=== PATIENT | female | born 1995 | race African-American/Black ===

== ENCOUNTER 2017-07-09 22:42 | Emergency (ER) | payer MEDICAID ==
[~2017-07-09] VITALS: Ht 157.5 cm; Wt 74.8 kg
[2017-07-09 22:42] VITALS: BP_SYST 128
--- NOTE | 2017-07-09 22:49 | NUR ---
Patient to ER bed 7 to gown for evaluation. Side rails up. Report given to Shanna STALEY.
--- NOTE | 2017-07-09 23:00 | NUR ---
Patientto ER C/O left foot pain. Patient states that she woke up 2 days ago with left foot pain w/o injury or trauma. Mild swelling to left foot, tenderness with palpation, describes the pain as throbbing and non-radiating, no signs of acute distress.
--- NOTE | 2017-07-09 23:24 | NUR ---
SHILOH Redd at bedside for evaluation.
--- NOTE | 2017-07-09 23:37 | NUR ---
[employer] at bedside for blood draw. Patient identified x2
[2017-07-09 23:52] LABS: BASOPHILS % (AUTO) 0.3 % (0.0-2.0); EOSINOPHILS # (AUTO) 0.2 K/uL (0.0-0.4); EOSINOPHILS % (AUTO) 1.5 % (0.0-4.0); HEMATOCRIT 40.1 % (36-48); HEMOGLOBIN 13.4 g/dL (12.0-16.0); LYMPHOCYTES # (AUTO) 2.8 K/uL (1.0-5.5); LYMPHOCYTES % (AUTO) 27.7 % (20.5-51.5); MEAN CORPUSCULAR HEMOGLOBIN 27 pg (27-31); MEAN CORPUSCULAR HGB CONC 34 % (32-36); MEAN CORPUSCULAR VOLUME 81 fL (79.0-98.0); MONOCYTES # (AUTO) 0.3 K/uL (0.0-1.0); MONOCYTES % (AUTO) 2.9 % (1.7-9.3); NEUTROPHILS # (AUTO) 6.9 K/uL (1.8-7.7); NEUTROPHILS % (AUTO) 67.6 % (40.0-70.0); PLATELET COUNT (AUTO) 353 K/uL (130-430); RED BLOOD CELL COUNT(AUTO) 4.93 MIL/uL (4.2-6.2); RED CELL DISTRIBUTION WIDTH 13.1 % (9.0-15.0); WHITE BLOOD COUNT (AUTO) 10.2 K/uL (4.8-10.8)
[2017-07-10 00:34] LABS: ERYTHROCYTE SEDIMENTATION RATE 2 MM/HR (0-20)
--- NOTE | 2017-07-10 00:46 | NUR ---
Patient C/O left foot pain 06/28. ER MD Redd aware
[2017-07-10] MEDS ORDERED: traMADol HCL HCL 50 MG TABLET (ULTRAM) PO ONE (01:15)
[2017-07-10 01:57] VITALS: BP_SYST 126
--- NOTE | 2017-07-10 01:57 | NUR ---
Patient given written and verbal discharge instructions and verbalizes understanding. ER MD Redd iscussed with patient the results and treatment provided. Patient in stable condition. ID arm band removed. Rx of tramadol given. Patient educated on pain management and to follow up with PMD. Pain Scale 0/10. Opportunity for questions provided and answered.
== END 2017-07-10 01:57 | disposition home or self-care (01) ==
LOC: SED 22:42
DX: M79.672 Pain in left foot (principal)
CPT/HCPCS: 36415; 81025; 85025; 85651-TC; 99284